=== PATIENT | male | born 1985 | race Caucasian/White ===

== ENCOUNTER 2018-07-09 06:58 | Emergency (ER) | payer OTHER, BC ==
[2018-07-09] MEDS: DEXAMETHASONE 10 MG/ML 1 ML INJ IM (07:19)
== END 2018-07-09 07:38 | disposition home or self-care (01) ==
LOC: FTE 06:58
DX: R21 Rash and other nonspecific skin eruption (principal)
CPT/HCPCS: 96372; 99284-25